=== PATIENT | male | born 1965 | race Caucasian/White ===

== ENCOUNTER 2023-01-27 14:00 | Outpatient (CLI) | payer OTHER | END 2023-01-27 14:01 | disposition home or self-care (01) | LOC: NAV RAD 14:00 | PROVIDERS: ATTEND Family Medicine | DX: I25.10 Atherosclerotic heart disease of native coronary artery without angina pectoris (principal); M23.203 Derangement of unspecified medial meniscus due to old tear or injury, right knee | CPT/HCPCS: 71046 ==